=== PATIENT | female | born 1990 | race African-American/Black ===

== ENCOUNTER 2017-06-23 10:08 | Inpatient (IN) | payer OTHER ==
[~2017-06-23] VITALS: Ht 175.3 cm; Wt 91.4 kg
[2017-06-23 10:38] LABS: EOSINOPHIL (%) 0 % (0-5); HEMATOCRIT 38.8 % (36.0-46.0); IMMATURE GRANULOCYTE (%) 0.3 % (0.0-0.7); LYMPHOCYTE COUNT 2.3 K/uL (1.0-2.8); MCH 31.8 PG (29.0-34.0); MCHC 33.8 G/DL (30.0-36.0); MCV 94.2 FL (83-99); MEAN PLAT.VOLUME 8.9 uM^3 (9.5-12.4); MONOCYTE (%) 8.4 % (3-12); MONOCYTE COUNT 0.7 K/uL (0-0.8); NEUTROPHIL (%) 62.3 % (45-76); PLATELET COUNT 301 K/uL (156-360); RBC DIS.WIDTH-CV 11.9 % (11.8-14.6); RBC DIS.WIDTH-SD 41.6 % (39-53); RED BLOOD COUNT 4.12 M/uL (3.80-5.20)
[2017-06-23 10:50] LABS: ADD MIUA? YES; BILIRUBIN NEGATIVE; BLOOD MODERATE; COLOR YELLOW ((YELLOW)); GLUCOSE (STRIP) NEGATIVE; KETONES NEGATIVE; LEUKOCYTES NEGATIVE; NITRITE NEGATIVE; PROTEIN (STRIP) 30; SPECIFIC GRAVITY 1.023 (1.000-1.030); UROBILINOGEN 0.2 MG/DL (0.2-1.0)
[2017-06-23 10:51] LABS: INTERNAL CONTROL VALID? YES
[2017-06-23 10:51] LABS: CHLORIDE 107 mEq/L (99-109); POTASSIUM 4.2 mEq/L (3.7-5.4); SODIUM 138 mEq/L (136-147)
[2017-06-23 10:53] LABS: BACTERIA NONE SEEN /HPF; EPITHELIAL CELLS RARE /HPF; MUCUS TRACE /LPF; RED BLOOD CELLS 15-20 /HPF (0-5); UCUL ADDED? NO; WHITE BLOOD CELLS 0-5 /HPF (0-5)
[2017-06-23 10:53] LABS: GLUCOSE 101 mg/dL (70-99)
[2017-06-23 10:54] LABS: ANION GAP 11 MEQ/L (2-14)
[2017-06-23 10:56] LABS: SERUM ETHYL ALCOHOL < 10 mg/dL
[2017-06-23 10:57] LABS: AMPHETAMINE NEGATIVE (500 ng/mL); BARBITURATES NEGATIVE (200 ng/mL); BENZODIAZEPINES NEGATIVE (150 ng/mL); COCAINE NEGATIVE (150 ng/mL); INTERNAL CONTROLS VALID? YES; METHADONE NEGATIVE (200 ng/mL); METHAMPHETAMINE NEGATIVE (500 ng/mL); OPIATES (MORPHINE) NEGATIVE (100 ng/mL); OXYCODONE NEGATIVE (100 ng/mL); PHENCYCLIDINE NEGATIVE (25 ng/mL); PROPOXYPHENE NEGATIVE (300 ng/mL); THC CANNABINOIDS NEGATIVE (50 ng/mL); TRICYCLIC ANTIDEPRESSANTS NEGATIVE (300 ng/mL)
[2017-06-23 10:57] LABS: GFR ESTIMATE (CALCULATED) > 59 mL/min/
[2017-06-23 10:59] LABS: UREA NITROGEN (BUN) 9 mg/dL (9-23)
[2017-06-23 11:00] LABS: SALICYLATE < 5.0 MG/DL (15-30)
[2017-06-23 15:50] VITALS: BP 118/66
[2017-06-23] MEDS ORDERED: VENLAFAXINE H37.5 MG PO (15:54)
[2017-06-23 17:59] VITALS: BP 118/66
[2017-06-24 07:37] VITALS: BP 125/88
[2017-06-24 16:03] VITALS: BP 108/61
[2017-06-25 07:20] VITALS: BP 103/53
[2017-06-25] MEDS ORDERED: FLUOXETINE HCL20 MG PO (08:57)
[2017-06-25] MEDS ORDERED: HYDROXYZINE PAM50 MG PO ×2 (08:57→08:59)
== END 2017-06-25 11:36 | disposition home or self-care (01) | DRG 885 ==
LOC: EME 10:08 → EDOF 13:41 → 1WEST 13:41 → EDOF 14:01 → ENRESERV 14:47 → 1WEST 15:45
PROVIDERS: Emergency Medicine
DX: F33.2 Major depressive disorder, recurrent severe without psychotic features (principal); F41.9 Anxiety disorder, unspecified; G47.00 Insomnia, unspecified; R45.851 Suicidal ideations; Z91.5 Personal history of self-harm; Z23 Encounter for immunization
CPT/HCPCS: 80048; 81003; 84703; 85025; 90686; 90839; 99281; 99285; G0480; Q0177

== ENCOUNTER 2017-09-25 13:03 | Emergency (ER) | payer BC ==
[~2017-09-25] VITALS: Ht 172.7 cm; Wt 92.5 kg
[~2017-09-25 13:03] MED LIST: FLUOXETINE HCL20 MG PO; HYDROXYZINE PAM50 MG PO; VENLAFAXINE H37.5 MG PO
[2017-09-25 13:55] LABS: HEMATOCRIT 38.8 % (36.0-46.0); HEMOGLOBIN 13.3 G/DL (11.9-15.5); MCH 32.2 PG (29.0-34.0); MCHC 34.3 G/DL (30.0-36.0); MCV 93.9 FL (83-99); PLATELET COUNT 308 K/uL (156-360); RBC DIS.WIDTH-CV 12.2 % (11.8-14.6); RBC DIS.WIDTH-SD 42.1 % (39-53); RED BLOOD COUNT 4.13 M/uL (3.80-5.20); WHITE BLOOD COUNT 11.5 K/uL (4.1-10.2)
[2017-09-25 14:18] LABS: APPEARANCE SL.HAZY ((CLEAR)); BILIRUBIN NEGATIVE; BLOOD LARGE; COLOR YELLOW ((YELLOW)); GLUCOSE (STRIP) NEGATIVE; KETONES NEGATIVE; LEUKOCYTES NEGATIVE; NITRITE NEGATIVE; PROTEIN (STRIP) NEGATIVE; SPECIFIC GRAVITY 1.025 (1.000-1.030); UROBILINOGEN 0.2 MG/DL (0.2-1.0)
[2017-09-25 14:49] LABS: BACTERIA NONE SEEN /HPF; CALCIUM OXALATE CRYSTALS 2+ /HPF; EPITHELIAL CELLS 1+ /HPF; MUCUS TRACE /LPF; UCUL ADDED? NO; WHITE BLOOD CELLS 0-5 /HPF (0-5)
[2017-09-25 16:05] VITALS: BP 116/57
== END 2017-09-25 16:05 | disposition home or self-care (01) ==
LOC: EME 13:03
DX: O9A.211 Injury, poisoning and certain other consequences of external causes complicating pregnancy, first trimester (principal); S30.1XXA Contusion of abdominal wall, initial encounter; O20.0 Threatened abortion; Y04.8XXA Assault by other bodily force, initial encounter; Z3A.01 Less than 8 weeks gestation of pregnancy
CPT/HCPCS: 76801; 81003; 84702; 85027; 86900; 86901

== ENCOUNTER 2017-12-01 21:25 | Emergency (ER) | payer BC ==
[~2017-12-01] VITALS: Ht 172.7 cm; Wt 90.6 kg
[2017-12-02] MEDS ORDERED: AUGMENTIN875 MG PO (00:17)
[2017-12-02 01:09] VITALS: BP 121/76
== END 2017-12-02 00:30 | disposition home or self-care (01) ==
LOC: EME 21:25
PROC: 0HQEXZZ Repair Left Lower Arm Skin, External Approach (ICD-10-PCS; principal; 2017-12-01)
DX: S51.852A Open bite of left forearm, initial encounter (principal); S50.12XA Contusion of left forearm, initial encounter; W54.0XXA Bitten by dog, initial encounter
CPT/HCPCS: 73090; 99281; 99284